=== PATIENT | male | born 1950 | race Caucasian/White ===

== ENCOUNTER 2017-05-03 09:13 | Emergency (ER) | payer MEDICARE, OTHER ==
[~2017-05-03] VITALS: Ht 170.2 cm; Wt 99.0 kg
[2017-05-03 09:15] VITALS: Ht 170.2 cm; Wt 99.0 kg
--- NOTE | 2017-05-03 10:26 | ERD ---
ER Documentation Chief Complaint Chief Complaint left foot & arm pain x1wk HPI 66y/o male patient with past history of glaucoma and benign prostatic hypertrophy,presents to the emergency department with his c/o generalized joint pain worse on the left shoulder bilateral hips and bilateral ankles, that started 7 days ago. pain is dull, constant, rated 8/10. The symptoms are associated with general malaise. Denies fever, chills, N/V/D. Refers similar history of previous episodes. Treatment attempted: None ROS All systems reviewed and are negative except as per history of present illness. Medications Home Meds Active Scripts Hydrocodone/Acetaminophen ([place] 5-325 Tablet) 1 Each Tablet, 1 EACH PO TID for SEVERE PAIN LEVEL 7-10, #12 TAB Prov:QAMAR PRINGLE MD 05/03/17 Prednisone* (Prednisone*) 20 Mg Tab, 20 MG PO DAILY for 5 Days, TAB Prov:QAMAR PRINGLE MD 05/03/17 Terazosin Hcl* (Terazosin Hcl*) 10 Mg Capsule, 10 MG PO BID for 30 Days, CAP Prov:QAMAR PRINGLE MD 05/03/17 Allergies Allergies: Coded Allergies: No Known Allergy (Unverified , 05/03/17) PMhx/Soc Hx Miscellaneous Medical Probl: Yes (enlarged prostate) Physical Exam Vitals Vital Signs Date Time Temp Pulse Resp B/P Pulse Ox O2 Delivery O2 Flow Rate FiO2 05/03/17 09:15 97.9 77 20 148/71 98 Physical Exam Patient is in no acute distress, vital signs stable. Alert and fully oriented. EYES: PERRLA, EOMI, Sclera and conjunctiva appear normal. EARS: Canals clear, tympanic membranes WNL THROAT: Normal oropharynx. NECK: Supple, No lymphadenopathy. Full ROM without pain or tenderness. HEART: RRR, no rubs, murmurs, clicks or gallops. LUNGS: Clear to auscultation. ABDOMEN: Soft, non-tender without masses or hepatosplenomegaly. EXTREMITIES: No edema bilaterally. MUSC: Full ROM, no deformity, normal back exam Result Diagram: 05/03/17 1053 05/03/17 1053 Results 24 hrs Laboratory Tests Test 05/03/17 10:49 05/03/17 10:53 Urine Color YELLOW Urine Clarity CLEAR Urine pH 8.0 Urine Specific [place] 1.020 Urine Ketones NEGATIVEmg/dL Urine Nitrite NEGATIVEmg/dL Urine Bilirubin NEGATIVEmg/dL Urine Urobilinogen NEGATIVEmg/dL Urine Leukocyte Esterase NEGATIVELeu/ul Urine Hemoglobin NEGATIVEmg/dL Urine Glucose NEGATIVEmg/dL Urine Total Protein NEGATIVEmg/dl White Blood Count 11.810^3/ul Red Blood Count 4.2510^6/ul Hemoglobin 12.6g/dl Hematocrit 37.5% Mean Corpuscular Volume 88.2fl Mean Corpuscular Hemoglobin 29.6pg Mean Corpuscular Hemoglobin Concent 33.6g/dl Red Cell Distribution Width 12.6% Platelet Count 96057^3/UL Mean Platelet Volume 9.9fl Neutrophils % 78.1% Lymphocytes % 10.5% Monocytes % 10.9% Eosinophils % 0.1% Basophils % 0.1% Nucleated Red Blood Cells % 0.0/100WBC Neutrophils # 9.210^3/ul Lymphocytes # 1.210^3/ul Monocytes # 1.310^3/ul Eosinophils # 0.010^3/ul Basophils # 0.010^3/ul Nucleated Red Blood Cells # 0.010^3/ul Sodium Level 135mmol/L Potassium Level 4.6mmol/L Chloride Level 101mmol/L Carbon Dioxide Level 25mmol/L Anion Gap 14 Blood Urea Nitrogen 14mg/dl Creatinine 0.73mg/dl Glucose Level 139mg/dl Calcium Level 8.3mg/dl Total Bilirubin 0.5mg/dl Direct Bilirubin 0.00mg/dl Indirect Bilirubin 0.5mg/dl Aspartate Amino Transf (AST/SGOT) 32IU/L Alanine Aminotransferase (ALT/SGPT) 34IU/L Alkaline Phosphatase 70IU/L Total Protein 5.7g/dl Albumin 3.6g/dl Globulin 2.10g/dl Albumin/Globulin Ratio 1.71 Lipase 57U/L Current Medications Medications (Trade) Dose Ordered Sig/Balaji Route PRN Reason Start Time Stop Time Status Last Admin Dose Admin Ketorolac Tromethamine (Toradol) 30 mg ONCE STAT IM 05/03/17 10:27 05/03/17 10:30 DC 05/03/17 11:01 Procedures/MDM 66y/o male patient with medical history of glaucoma and BPH, presents to the ED c/o bilateral joint pain for 7 days. Vital signs stable, Physical exam unremarkable. Differential diagnosis include but not limited to: Arthritis, osteoarthritis, gout, bursitis, tendinitis. Pertinent Data: 12 Lead ECG: Sinus gunner, no ST changes, normal intervals Labs: CBC: Showed mild anemia, we recommend follow-up with his primary doctor for a colonoscopy, CMP: normal kidney and liver function, normal electrolytes. Lipase: normal Physical examination and clinical presentation consistent most likely with arthralgia. During the ED course the patient received treatment with Toradol presenting overall improvement of the symptoms. Results and medical impression discussed with patient who agrees with management. The patient will be discharged home with a Rx for anti- inflammatories and pain medication Side effects of prescribed narcotic medications (drowsiness, constipation, habituation) were reviewed. If symptoms persist, worsen or new symptoms develop, then patient is instructed to follow-up with the primary care provider. If the patient is unable to see the primary care provider, then return to the ED immediately. Departure Diagnosis: Primary Impression: Arthralgia of multiple sites, bilateral Condition: Stable Additional Instructions: Muchas perico por [facility] para dawkins servicio. Esperamos que en dawkins visita a la awais de emergencia dawkins problema medico haya sido solucionado y que se sienta mucho mejor. Para estar seguros que dawkins mejoria sigue en proceso, le pedimos el favor de hacer dorothy abner de seguimiento medico con dawkins doctor primario en los proximos 2-4 mason. Lleve con usted estos documentos y las medicinas recetadas. Si baldomero sintomas empeoran y no puede adolfo a dawkins doctor, por favor regrese a awais de emergencia. KIM-QAMAR OSORIO MD May 03, 2017 10:26
[2017-05-03] MEDS ORDERED: KETOROLAC 30 MG INJ IM STA (10:27)
[2017-05-03 11:00] LABS: WHITE BLOOD COUNT 11.8 10^3/ul (4.8-10.8)
[2017-05-03 11:01] LABS: BASOPHILS % 0.1 % (0.0-2.0); EOSINOPHILS % 0.1 % (0.0-7.0); HEMATOCRIT 37.5 % (42.0-52.0); HEMOGLOBIN 12.6 g/dl (14.0-18.0); LYMPHOCYTES # 1.2 10^3/ul (0.8-2.9); LYMPHOCYTES % 10.5 % (15.0-51.0); MEAN CORPUSCULAR HEMOGLOBIN 29.6 pg (29.0-33.0); MEAN CORPUSCULAR HGB CONC 33.6 g/dl (32.0-37.0); MEAN CORPUSCULAR VOLUME 88.2 fl (82.0-101.0); MEAN PLATELET VOLUME 9.9 fl (7.4-10.4); MONOCYTE # 1.3 10^3/ul (0.3-0.9); MONOCYTES % 10.9 % (0.0-11.0); NEUTROPHIL # 9.2 10^3/ul (1.6-7.5); NEUTROPHILS % 78.1 % (39.0-77.0); PLATELET COUNT 304 10^3/UL (140-415); RED BLOOD COUNT 4.25 10^6/ul (4.70-6.10); RED CELL DISTRIBUTION WIDTH 12.6 % (11.5-14.5)
[2017-05-03 11:25] LABS: ALBUMIN 3.6 g/dl (3.3-4.9); ALBUMIN/GLOBULIN RATIO 1.71; BILIRUBIN,INDIRECT 0.5 mg/dl (0-1.1); BILIRUBIN,TOTAL 0.5 mg/dl (0.2-1.3); CALCIUM 8.3 mg/dl (8.4-10.2); CREATININE 0.73 mg/dl (0.61-1.24); POTASSIUM 4.6 mmol/L (3.5-5.1); TOTAL PROTEIN 5.7 g/dl (6.1-8.1)
[2017-05-03 12:42] LABS: ADD UMIC NO; UR ASCORBIC ACID NEGATIVE (NEGATIVE); UR BILIRUBIN (Dip) NEGATIVE (NEGATIVE); UR BLOOD (Dip) NEGATIVE (NEGATIVE); UR CLARITY CLEAR (CLEAR); UR COLOR YELLOW (YELLOW); UR GLUCOSE (Dip) NEGATIVE (NEGATIVE); UR KETONES (Dip) NEGATIVE (NEGATIVE); UR LEUKOCYTE ESTERASE (Dip) NEGATIVE Leu/ul (NEGATIVE); UR NITRITE (Dip) NEGATIVE (NEGATIVE); UR TOTAL PROTEIN (Dip) NEGATIVE (NEGATIVE); UR UROBILINOGEN (Dip) NEGATIVE (NEGATIVE)
[2017-05-03] MEDS ORDERED: TERA10CA42 PO (12:57)
[2017-05-03] MEDS ORDERED: HYDR-906 PO (12:57)
[2017-05-03] MEDS ORDERED: PRED20TA PO (12:57)
[2017-05-03 13:27] VITALS: BP 115/65; PULSE 68; RESP 16; TEMP 99
[2017-05-06] MEDS ORDERED: PRED20TA PO (09:21)
[2017-05-06] MEDS ORDERED: HYDR-906 PO (09:21)
== END 2017-05-03 13:27 | disposition home or self-care (01) ==
LOC: FTE 09:13
DX: M25.512 Pain in left shoulder (principal); M25.551 Pain in right hip; M25.552 Pain in left hip; M25.572 Pain in left ankle and joints of left foot; M25.571 Pain in right ankle and joints of right foot; R53.1 Weakness
CPT/HCPCS: 36415; 80053; 81003; 83690; 85025; 93005; 96372; 99284; J1885